=== PATIENT | female | born 1980 | race Caucasian/White ===

== ENCOUNTER 2016-07-18 07:41 | Emergency (ER) | payer OTHER ==
[~2016-07-18] VITALS: Ht 152.4 cm; Wt 83.2 kg
[~2016-07-18 07:41] MED LIST: CHANTIX PO; NOHOMEMEDS
[2016-07-18] MEDS ORDERED: ZOFRAN ODT4 MG PO (09:30)
[2016-07-18 09:51] VITALS: BP 100/71
== END 2016-07-18 10:00 | disposition home or self-care (01) ==
LOC: EME 07:41
DX: A08.4 Viral intestinal infection, unspecified (principal); Z88.1 Allergy status to other antibiotic agents; Z72.0 Tobacco use
CPT/HCPCS: 99281; 99284